=== PATIENT | female | born 1990 | race Caucasian/White ===

== ENCOUNTER 2018-10-24 07:57 | Emergency (ER) | payer OTHER ==
[~2018-10-24] VITALS: Ht 177.8 cm; Wt 76.7 kg
[2018-10-24] MEDS ORDERED: LEXAPRO 10 MG T10 M2 PO (08:14)
[2018-10-24] MEDS ORDERED: TRAMADOL 50 MG50 MG PO (11:07)
[2018-10-24] MEDS ORDERED: CYCLOBENZAPRINE5 MG PO (11:07)
[2018-10-24 11:19] VITALS: BP 115/77
== END 2018-10-24 11:21 | disposition home or self-care (01) ==
LOC: M.ERS 07:57
DX: S16.1XXA Strain of muscle, fascia and tendon at neck level, initial encounter (principal); F32.9 Major depressive disorder, single episode, unspecified; Z88.1 Allergy status to other antibiotic agents; V49.49XA Driver injured in collision with other motor vehicles in traffic accident, initial encounter; Y93.89 Activity, other specified; Y92.89 Other specified places as the place of occurrence of the external cause; Y99.8 Other external cause status